=== PATIENT | female | born 1955 ===

== ENCOUNTER 2025-08-31 06:36 | Day surgery (SDC) | payer OTHER ==
[2025-08-24 14:36] VITALS: BP 165/88
[~2025-08-31] VITALS: Ht 160 cm; Wt 80.7 kg
[~2025-08-31 06:36] MED LIST: ATORVASTATIN CA10 MG PO; LEVO-T137 MCG PO
[2025-08-31] MEDS ORDERED: POVIDONE-IODINE 118 ML BOTT TOP ONE (10:33)
[2025-08-31] MEDS ORDERED: CHLORHEXIDINE GLUCONATE 120 ML BOTTLE TOP ONE (10:59)
[2025-08-31] MEDS ORDERED: PROMETHAZINE HCL 50 MG/ML AMPUL IM ONE (12:00)
[2025-08-31] MEDS ORDERED: MORPHINE SULFATE 4 MG/ML VIAL IV PRN (12:00)
== END 2025-08-31 15:55 | disposition home or self-care (01) ==
LOC: CIR.AMB 06:36
PROVIDERS: ATTEND Student in an Organized Health Care Education/Training Program
DX: T83.31XA Breakdown (mechanical) of intrauterine contraceptive device, initial encounter (principal); R10.20 Pelvic and perineal pain unspecified side; N88.2 Stricture and stenosis of cervix uteri